=== PATIENT | female | born 1990 | race Caucasian/White ===

== ENCOUNTER 2017-08-20 09:50 | Emergency (ER) | payer SELFPAY, OTHER ==
[2017-08-20] MEDS: KETOROLAC 60 MG/2 ML VIAL (J1885) IM (10:17)
[2017-08-20 10:37] LABS: KETONE, URINE AUTO RFX NEGATIVE (NEGATIVE); LEUKOCYTE ESTERASE UR AUTO RFX NEGATIVE (NEGATIVE); MUCUS, URINE RFX SMALL (NEGATIVE); NITRITE, URINE AUTO RFX NEGATIVE (NEGATIVE); RBC, URINE AUTO RFX 26 /HPF (0-3); SPECIFIC GRAVITY UR AUTO RFX 1.008 (1.002-1.035); SQUAM EPITHELIAL CELL UR AURFX 0 /HPF (0-6); WBC, URINE AUTO RFX 2 /HPF (0-3)
== END 2017-08-20 12:16 | disposition home or self-care (01) ==
LOC: M ED 09:50
DX: R10.2 Pelvic and perineal pain (principal); R11.0 Nausea; Z87.442 Personal history of urinary calculi; Z88.1 Allergy status to other antibiotic agents; Z91.018 Allergy to other foods
CPT/HCPCS: J1885

== ENCOUNTER 2018-08-22 09:59 | Emergency (ER) | payer BC, SELFPAY ==
[~2018-08-22] VITALS: Ht 167.6 cm; Wt 63.5 kg
[~2018-08-22 09:59] MED LIST: IBUP80TA PO
[2018-08-22 10:41] LABS: BASO # 0.1 10^3/uL (0.0-0.2); BASO % 1.2 % (0.0-1.0); EOS # 0.2 10^3/uL (0.0-0.50); EOS % 3.5 % (0.0-3.0); HEMATOCRIT 36.1 % (36.0-47.0); LYMPH % 22.7 % (24.0-44.0); MEAN CORPUSCULAR HEMOGLOBIN 30.6 pg (27.0-33.0); MEAN CORPUSCULAR HGB CONC 33.2 g/dl (32.0-36.5); MEAN CORPUSCULAR VOLUME 92.1 fl (80.0-96.0); MONO # 0.2 10^3/uL (0.0-0.8); MONO % 4.4 % (0.0-5.0); NEUTROPHILS # 2.9 10^3/uL (1.8-7.7); NEUTROPHILS % 67.5 % (36.0-66.0); PLATELET COUNT, AUTOMATED 216 10^3/uL (150-450); RED BLOOD COUNT 3.92 10^6/uL (4.00-5.40); WHITE BLOOD COUNT 4.3 10^3/uL (4.0-10.0)
[2018-08-22 11:11] LABS: ALBUMIN 3.9 GM/DL (3.2-5.2); ALT/SGPT 24 U/L (12-78); BILIRUBIN,DIRECT 0.1 MG/DL (0.0-0.2); BILIRUBIN,TOTAL 0.4 MG/DL (0.2-1.0); BLOOD UREA NITROGEN 16 MG/DL (7-18); C REACTIVE PROTEIN QUANTITATIV 0.85 MG/DL (0.00-0.30); CALCIUM LEVEL 8.8 MG/DL (8.5-10.1); CARBON DIOXIDE LEVEL 24 MEQ/L (21-32); CHLORIDE LEVEL 110 MEQ/L (98-107); GLOMERULAR FILTRATION RATE > 60.0 (>60); GLUCOSE, FASTING 94 MG/DL (70-100); POTASSIUM SERUM 4.2 MEQ/L (3.5-5.1); RHEUMATOID FACTOR QUANT < 10.0 IU/ML (<15.0); SODIUM LEVEL 141 MEQ/L (136-145); TOTAL PROTEIN 7.1 GM/DL (6.4-8.2)
[2018-08-22 11:14] LABS: ERYTHROCYTE SEDIMENTATION RATE 14 mm/hr (0-20)
[2018-08-22 11:21] LABS: HCG, SERUM QUALITATIVE POSITIVE (NEGATIVE)
--- NOTE | 2018-08-22 12:39 | REP ---
Clinical: Previous medical with vaginal bleeding and positive test. Technique: Transabdominal pelvic ultrasound with color Doppler evaluation. Findings: Heterogeneous anteverted uterus measures 8.8 x 4.8 x 6.8 cm. Endometrial complex is heterogeneous, thickened and hypervascular measuring 19.8 mm thickness suggesting retained products of conception. No intrauterine identified. Bilateral ovaries are normal in appearance. Right ovary measures 3.7 x 2.0 x 2.2 cm; Left ovary measures 3.3 x 2.2 x 2.5 cm. No pelvic fluid or adnexal mass lesion. Impression: Heterogeneous thickened hypervascular endometrium consistent with retained products of conception. Electronically Signed by Kervin Kenyon MD 08/22/2018 12:30 P
[2018-08-22] MEDS ORDERED: PRED20TA PO (12:55)
[2018-08-22 13:04] VITALS: BP 107/58
[2018-08-23 17:14] LABS: ANTINUCLEAR ANTIBODIES DIRECT Negative (Negative); Lyme Disease IgG/IgM Antibodie <0.91 ISR (0.00-0.90); Lyme Disease IgM Ab Quantitati <0.80 index (0.00-0.79)
== END 2018-08-22 13:06 | disposition home or self-care (01) ==
LOC: M ED 09:59
DX: M25.50 Pain in unspecified joint (principal); M79.89 Other specified soft tissue disorders; M19.90 Unspecified osteoarthritis, unspecified site; O04.89 (Induced) termination of pregnancy with other complications; O73.1 Retained portions of placenta and membranes, without hemorrhage

== ENCOUNTER → 2018-09-16 | Outpatient (REF) | payer BC ==
[~2018-09-16] MED LIST changes: +PRED20TA PO
[2018-09-16 13:52] LABS: RHEUMATOID FACTOR QUANT < 10.0 IU/ML (<15.0)
[2018-09-16 13:54] LABS: TOTAL 25(OH) VITAMIN D 20.3 NG/ML (30.0-100.0)
[2018-09-17 14:11] LABS: ANTINUCLEAR ANTIBODIES DIRECT Negative (Negative)
== END ==
LOC: M LABNEURO 08:37
PROVIDERS: ATTEND Psychiatry & Neurology Neurology
DX: R51 Headache (principal)

== ENCOUNTER 2019-02-18 13:48 | Day surgery (SDC) | payer BC, SELFPAY ==
[~2019-02-18] VITALS: Ht 167.6 cm; Wt 65.7 kg
[2019-02-18] MEDS ORDERED: SERT25TA21 PO (14:07)
[2019-02-18] MEDS ORDERED: NS 1,000 ML IV ONE (14:15)
[2019-02-18] MEDS ORDERED: ONDANSETRON 4MG/2ML VIAL (J2405) IV ONE (14:15)
[2019-02-18 14:28] LABS: BASO # 0.1 10^3/uL (0.0-0.2); BASO % 0.6 % (0.0-1.0); EOS % 0.4 % (0.0-3.0); HEMATOCRIT 30.9 % (36.0-47.0); HEMOGLOBIN 10.2 g/dl (12.0-15.5); LYMPH # 2.1 10^3/uL (1.5-5.0); LYMPH % 20.9 % (24.0-44.0); MEAN CORPUSCULAR HEMOGLOBIN 30.4 pg (27.0-33.0); MONO # 0.5 10^3/uL (0.0-0.8); MONO % 4.5 % (0.0-5.0); NEUTROPHILS # 7.3 10^3/uL (1.5-8.5); NEUTROPHILS % 73.2 % (36.0-66.0); PLATELET COUNT, AUTOMATED 284 10^3/uL (150-450); RED BLOOD COUNT 3.36 10^6/uL (4.00-5.40)
[2019-02-18 15:17] LABS: BLOOD UREA NITROGEN 16 MG/DL (7-18); CALCIUM LEVEL 8.7 MG/DL (8.5-10.1); CARBON DIOXIDE LEVEL 24 MEQ/L (21-32); CHLORIDE LEVEL 109 MEQ/L (98-107); CREATININE FOR GFR 0.69 MG/DL (0.55-1.30); GLOMERULAR FILTRATION RATE > 60.0 (>60); GLUCOSE, FASTING 114 MG/DL (70-100); HCG, SERUM QUANTITATIVE 7909 MIU/ML; POTASSIUM SERUM 4.3 MEQ/L (3.5-5.1); SODIUM LEVEL 140 MEQ/L (136-145)
[2019-02-18] MEDS ORDERED: ACETAMINOPHEN 325 MG TAB PO ONE (16:30)
--- NOTE | 2019-02-18 16:49 | REP ---
Clinical: Vaginal bleeding. Recent . Technique: Transabdominal pelvic ultrasound with color Doppler evaluation of the ovaries. Findings: Bladder appears normal and measures approximately 10.4 x 4.5 x 5.7 cm. Heterogeneous anteverted uterus measures 7.9 x 4.9 x 6.0 cm. Endometrial complex measures 12 mm thickness and complex hemorrhagic debris noted distending the vaginal canal. Bilateral ovaries are normal in appearance and vascularity without evidence for torsion. Right ovary measures 2.9 x 1.8 x 1.5 cm (RI of 0.66). Left ovary measures 2.0 x 1.4 x 1.7 cm (RI 0.50). No pelvic fluid or adnexal mass lesion. Impression: Complex presumed hemorrhagic material distending the endovaginal canal. Electronically Signed by Kervin Kenyon MD 02/18/2019 04:39 P
[2019-02-18 18:07] LABS: INR 1.18; PROTHROMBIN TIME 14.7 SECONDS (11.8-14.0)
[2019-02-18] MEDS ORDERED: LIDOCAINE 2% INJ 100 MG/5 ML SDV (FOR ANES.) As Ordered ONE (18:32)
[2019-02-18] MEDS ORDERED: propofoL 200 MG/20 ML VIAL As Ordered ONE (18:32)
[2019-02-18] MEDS ORDERED: MIDAZOLAM INJ 2 MG/2 ML VIAL (J2250) As Ordered ONE (18:33)
[2019-02-18] MEDS ORDERED: ONDANSETRON 4MG/2ML VIAL (J2405) As Ordered ONE (18:33)
[2019-02-18] MEDS ORDERED: KETOROLAC 60 MG/2 ML VIAL (J1885) As Ordered ONE (18:33)
[2019-02-18] MEDS ORDERED: dexameTHASONE 4 MG/ML 1ML VIAL (J1100) As Ordered ONE (18:33)
[2019-02-18] MEDS ORDERED: fentaNYL 100 MCG/2 ML INJECTION (J3010) As Ordered ONE (18:33)
[2019-02-18] MEDS ORDERED: METHYLERGONOVINE MALEATE 0.2 MG/ML VIAL (J2210) As Ordered ONE (19:25)
[2019-02-18] MEDS: PERCOCET 5MG/325MG TAB PO PRN ×2 (19:55→20:44)
[2019-02-18] MEDS ORDERED: fentaNYL 100 MCG/2 ML INJECTION (J3010) IV PRN (20:00)
[2019-02-18] MEDS ORDERED: ACETAMINOPHEN 500 MG TAB PO PRN (20:00)
[2019-02-18] MEDS ORDERED: LR 1,000 ML IV SCH ×2 (20:00)
[2019-02-18] MEDS ORDERED: ONDANSETRON 4MG/2ML VIAL (J2405) IV PRN (20:00)
[2019-02-18] MEDS ORDERED: METOCLOPRAMIDE INJ 10MG/2ML VIAL (J2765) IV PRN (20:00)
[2019-02-18] MEDS ORDERED: DOXYCYCLINE HYCLATE 100 MG TAB PO ONE (20:00)
[2019-02-18 21:10] VITALS: BP 117/57
[2019-02-18 21:30] VITALS: BP 104/51
--- NOTE | 2019-02-19 08:58 | RO ---
DATE OF PROCEDURE: 02/18/2019 PREOPERATIVE DIAGNOSIS: Incomplete . POSTOPERATIVE DIAGNOSIS: Incomplete . PROCEDURE: Dilation, evacuation and curettage (D, E and C). SURGEON: Bertram Huang MD COPPER PLATER: ANESTHESIA: General endotracheal. ESTIMATED BLOOD LOSS: 100 mL. URINE OUTPUT: 30 mL. FINDINGS: Mildly enlarged uterus with moderate amount of products of conception. OPERATIVE SUMMARY: Patient taken to the operating room where general endotracheal anesthesia was induced. She was prepped and draped in sterile fashion in the dorsal lithotomy position. The bladder was emptied with a catheter. A speculum was placed in the vagina. The anterior lip of the cervix was grasped with a tenaculum. The cervix was dilated with tapered dilators. The cervix was also noted to be mildly dilated. A #9 mm suction curette was placed to the internal os. A suction device was activated and the curette was gently rotated until products of conception were noted coming through the suction tube. A sharp curettage was performed. The uterine cavity was deemed to be empty. Patient noted to have moderate uterine atony after the procedure. She received 0.2 mg of Methergine intramuscular (IM). Her uterine tone improved. Hemostasis was good. All instruments were removed. Sponge and instrument counts were correct. The patient was extubated and went to recovery room in stable condition.
== END 2019-02-18 22:15 | disposition home or self-care (01) ==
LOC: M ED 13:48 → M SDC 13:49 → ENRESERV 20:17 → M PED 21:10 → M SDC 22:15
PROVIDERS: ATTEND Specialist
DX: O03.4 Incomplete spontaneous abortion without complication (principal); Z87.442 Personal history of urinary calculi; Z88.1 Allergy status to other antibiotic agents; Z79.899 Other long term (current) drug therapy
CPT/HCPCS: 36415; 59812; 76856; 80048; 81001; 84702; 85025; 85610; 86850; 86870; 86900; 86901; 87088; 87186; 88305; 93976; 96374; 99284; J1100; J1885; J2210; J2250; J2405; J3010

== ENCOUNTER → 2019-12-28 | Outpatient (CLI) | payer BC ==
[~2019-12-28] MED LIST changes: +SERT25TA21 PO
[2019-12-28 14:50] LABS: FREE T4 0.8 NG/DL (0.76-1.46); THYROID STIMULATING HORMONE 3.7 uIU/ML (0.358-3.740)
== END ==
LOC: M LAB 10:44
PROVIDERS: ATTEND Internal Medicine Gastroenterology
DX: K21.9 Gastro-esophageal reflux disease without esophagitis (principal)

== ENCOUNTER → 2020-01-11 | Outpatient (CLI) | payer BC ==
[2020-01-13 18:25] LABS: F013-IGE PEANUT 0.41 kU/L (Class I); F017-IGE FILBERT 0.86 kU/L (Class II); F018-IGE BRAZIL NUT <0.10 kU/L (Class 0); F020-IGE ALMOND 0.18 kU/L (Class 0/I); F201-IGE PECAN NUT 0.11 kU/L (Class 0/I); F202-IGE CASHEW NUT <0.10 kU/L (Class 0); F256-IGE WALNUT 0.48 kU/L (Class I); F345-IGE MACADAMIA NUT 0.15 kU/L (Class 0/I)
== END ==
LOC: M PLALAB 10:03
PROVIDERS: ATTEND Allergy & Immunology Allergy
DX: T78.01XD Anaphylactic reaction due to peanuts, subsequent encounter (principal); T78.05XD Anaphylactic reaction due to tree nuts and seeds, subsequent encounter

== ENCOUNTER → 2020-01-29 | Outpatient (REF) | payer BC ==
[~2020-01-29] MED LIST changes: +CLAR1TAB13 PO; +OMEP-221 PO
== END ==
LOC: M LAB REF 14:39
PROVIDERS: ATTEND Internal Medicine Gastroenterology
DX: K21.9 Gastro-esophageal reflux disease without esophagitis (principal)

== ENCOUNTER → 2020-01-30 | Outpatient (CLI) | payer BC | LOC: M LABSMTC 10:47 | PROVIDERS: ATTEND Anesthesiology | DX: Z01.818 Encounter for other preprocedural examination (principal); Z20.828 Contact with and (suspected) exposure to other viral communicable diseases ==

== ENCOUNTER 2020-02-04 11:41 | Day surgery (SDC) | payer BC ==
[~2020-02-04] VITALS: Ht 167.6 cm; Wt 71.2 kg
[~2020-02-04 11:41] MED LIST changes: +NS 1,000 ML IV ONE
[2020-02-04] MEDS ORDERED: LIDOCAINE 2% 100MG/5ML SDV (FOR ANES.) As Ordered ONE (12:27)
[2020-02-04] MEDS ORDERED: propofoL 200 MG/20 ML VIAL As Ordered ONE (12:27)
[2020-02-04] MEDS ORDERED: fentaNYL 100 MCG/2 ML INJECTION (J3010) As Ordered ONE (12:27)
--- NOTE | 2020-02-04 12:45 | ROOR ---
Patient Name: Vivi Rod Procedure Date: 02/04/2020 12:30 PM Date of : 1990 Age: 29 Room: [facility] Gender: Female Note Status: Finalized Procedure: Upper GI endoscopy Indications: Functional Dyspepsia, Heartburn Providers: Scotty REYES MD Referring MD: Adrienne Sanchez NP Requesting Provider: Medicines: Monitored Anesthesia Care Complications: No immediate complications. Procedure: Pre-Anesthesia Assessment: - The heart rate, respiratory rate, oxygen saturations, blood pressure, adequacy of pulmonary ventilation, and response to care were monitored throughout the procedure. The Endoscope was introduced through the mouth, and advanced to the second part of duodenum. The upper GI endoscopy was accomplished without difficulty. The patient tolerated the procedure well. Findings: The esophagus was normal. The stomach was normal. The examined duodenum was normal. Impression: - Normal esophagus. - Normal stomach. - Normal examined duodenum. - No specimens collected. Recommendation: - Follow an antireflux regimen. - Continue present medications. Procedure Code(s): --- Professional --- 80302, Esophagogastroduodenoscopy, flexible, transoral; diagnostic, including collection of specimen(s) by brushing or washing, when performed (separate procedure) Diagnosis Code(s): --- Professional --- R12, Heartburn K30, Functional dyspepsia CPT copyright 2019 [employer]. All rights reserved. The codes documented in this report are preliminary and upon hcc coders review may be revised to meet current compliance requirements. Scotty Reyes MD Scotty REYES MD 02/04/2020 12:44:36 PM Electronically signed by Scotty REYES MD Number of Addenda: 0 Note Initiated On: 02/04/2020 12:30 PM Estimated Blood Loss: Estimated blood loss: none.
[2020-02-04] MEDS ORDERED: ePHEDrine SULFATE 25 MG/5 ML(5MG/ML) SYRINGE As Ordered ONE (12:48)
--- NOTE | 2020-02-04 13:07 | ROOR ---
Patient Name: Vivi Rod Procedure Date: 02/04/2020 12:30 PM Date of : 1990 Age: 29 Room: [facility] Gender: Female Note Status: Finalized Procedure: Colonoscopy Indications: Generalized abdominal pain, Clinically significant diarrhea of unexplained origin, Suspected irritable bowel syndrome Providers: Scotty REYES MD Referring MD: Adrienne Sanchez NP Requesting Provider: Medicines: Monitored Anesthesia Care Complications: No immediate complications. Procedure: Pre-Anesthesia Assessment: - The heart rate, respiratory rate, oxygen saturations, blood pressure, adequacy of pulmonary ventilation, and response to care were monitored throughout the procedure. The Colonoscope was introduced through the anus and advanced to 10 cm into the ileum. The colonoscopy was performed without difficulty. The patient tolerated the procedure well. The quality of the bowel preparation was good. Findings: The perianal and digital rectal examinations were normal. A diminutive polyp was found in the hepatic flexure. The polyp was sessile. The polyp was removed with a cold snare. Resection and retrieval were complete. Small Internal Hemorrhoids. The exam was otherwise normal throughout the examined colon. The terminal ileum appeared normal. Impression: - One diminutive polyp at the hepatic flexure, removed with a cold snare. Resected and retrieved. - Small Internal Hemorrhoids. - The colon is otherwise normal. - The terminal ileum ileum was normal. - (Irritable Bowel Syndrome/IBS suspected.) Recommendation: - Discontinue Bentyl (dicyclomine). - Use Levbid 0.375 mg Extended Tabs 1 tab PO every 8-12 hours PRN. - (the script was sent to your pharmacy on file) - Telephone endoscopist for pathology results in 2 weeks. - If the pathology report reveals adenomatous tissue, then repeat the colonoscopy for surveillance in 5 years. - If the pathology report reveals no adenomatous tissue, then repeat the colonoscopy at age [age] years old. Procedure Code(s): --- Professional --- 19812, Colonoscopy, flexible; with removal of tumor(s), polyp(s), or other lesion(s) by snare technique Diagnosis Code(s): --- Professional --- R19.7, Diarrhea, unspecified R10.84, Generalized abdominal pain K63.5, Polyp of colon CPT copyright 2019 [employer]. All rights reserved. The codes documented in this report are preliminary and upon concrete crusher loader operator review may be revised to meet current compliance requirements. Scotty Reyes MD Scotty REYES MD 02/04/2020 1:07:20 PM Electronically signed by Scotty REEYS MD Number of Addenda: 0 Note Initiated On: 02/04/2020 12:30 PM Estimated Blood Loss: Estimated blood loss: none.
[2020-02-04 13:30] VITALS: BP 110/70
== END 2020-02-04 13:42 | disposition home or self-care (01) ==
LOC: M OPP 11:41
PROVIDERS: ATTEND Internal Medicine Gastroenterology
DX: R10.84 Generalized abdominal pain (principal); R19.7 Diarrhea, unspecified; K63.5 Polyp of colon; K64.8 Other hemorrhoids; K30 Functional dyspepsia; R12 Heartburn
CPT/HCPCS: 43235; 45385; 88305; J3010

== ENCOUNTER → 2020-04-26 | Outpatient (CLI) | payer BC ==
[~2020-04-26] MED LIST changes: -NS 1,000 ML IV ONE
--- NOTE | 2020-04-26 16:13 | REP ---
INDICATION: R10L2 PELVIC AND PERINEAL PAIN COMPARISON: 02/18/2019 TECHNIQUE: Transabdominal pelvic ultrasound followed by transvaginal examination for better evaluation of the endometrium and adnexa. FINDINGS: Bladder is partially collapsed. Normal anteverted uterus measures 9.4 x 4.2 x 4.7 cm. The endometrial complex measures 7.1 mm thickness and includes small incidental 3 mm endometrial cyst. Nabothian cysts in the lower uterine segment and cervix are identified measuring up to approximately 7 mm. Bilateral ovaries are normal in appearance and vascularity without evidence for torsion. Right ovary measures 3.1 x 1.3 x 3.3 cm; left ovary measures 2.6 x 2.0 x 1.7 cm. No pelvic fluid or adnexal mass lesion. IMPRESSION: Essentially normal pelvic ultrasound. Incidental findings as noted above. <Electronically signed by Kervin Kenyon > 04/26/20 [id number]
== END ==
LOC: M WHC 15:09
PROVIDERS: ATTEND Advanced Practice Midwife
DX: R10.2 Pelvic and perineal pain (principal)

== ENCOUNTER → 2021-06-27 | Outpatient (CLI) | payer BC, OTHER ==
[~2021-06-27] MED LIST changes: -OMEP-221 PO; +OMEP40CA5 PO
== END ==
LOC: M PLALAB 12:31
PROVIDERS: ATTEND Specialist
DX: Z53.9 Procedure and treatment not carried out, unspecified reason (principal)

== ENCOUNTER → 2021-08-07 | Outpatient (CLI) | payer BC, OTHER | LOC: M WHC 09:14 | PROVIDERS: ATTEND Specialist | DX: Z34.82 Encounter for supervision of other normal pregnancy, second trimester (principal); Z3A.19 19 weeks gestation of pregnancy ==

== ENCOUNTER → 2021-08-28 | Outpatient (REF) | payer OTHER | LOC: M PLALAB 08:01 | PROVIDERS: ATTEND Advanced Practice Midwife | DX: Z34.92 Encounter for supervision of normal pregnancy, unspecified, second trimester (principal) ==

== ENCOUNTER → 2021-09-12 | Outpatient (CLI) | payer OTHER | LOC: M WHC 12:33 | PROVIDERS: ATTEND Advanced Practice Midwife | DX: O44.02 Complete placenta previa NOS or without hemorrhage, second trimester (principal); Z3A.24 24 weeks gestation of pregnancy ==

== ENCOUNTER → 2021-09-25 | Outpatient (CLI) | payer OTHER ==
[2021-09-25 15:41] LABS: HEMATOCRIT 40.5 % (36.0-47.0); HEMOGLOBIN 13.3 g/dl (12.0-15.5); MEAN CORPUSCULAR HEMOGLOBIN 32.3 pg (27.0-33.0); MEAN CORPUSCULAR HGB CONC 32.8 g/dl (32.0-36.5); MEAN CORPUSCULAR VOLUME 98.3 fl (80.0-96.0); PLATELET COUNT, AUTOMATED 180 10^3/uL (150-450); RED BLOOD COUNT 4.12 10^6/uL (4.00-5.40)
== END ==
LOC: M PLALAB 12:48
PROVIDERS: ATTEND Advanced Practice Midwife
DX: Z34.92 Encounter for supervision of normal pregnancy, unspecified, second trimester (principal)
CPT/HCPCS: 36415; 82950; J2790

== ENCOUNTER → 2021-09-25 | Outpatient (CLI) | payer OTHER ==
[2021-09-25 15:41] LABS: BASO % 0.3 % (0.0-1.0); EOS # 0.1 10^3/uL (0.0-0.5); EOS % 0.7 % (0.0-3.0); HEMATOCRIT 41.8 % (36.0-47.0); HEMOGLOBIN 13.4 g/dl (12.0-15.5); LYMPH # 1.6 10^3/uL (1.5-5.0); LYMPH % 18.7 % (24.0-44.0); MEAN CORPUSCULAR HEMOGLOBIN 31.2 pg (27.0-33.0); MEAN CORPUSCULAR HGB CONC 32.1 g/dl (32.0-36.5); MEAN CORPUSCULAR VOLUME 97.2 fl (80.0-96.0); MONO # 0.5 10^3/uL (0.0-0.8); MONO % 5.6 % (2.0-8.0); NEUTROPHILS # 6.5 10^3/uL (1.5-8.5); NEUTROPHILS % 74.2 % (36.0-66.0); PLATELET COUNT, AUTOMATED 183 10^3/uL (150-450); WHITE BLOOD COUNT 8.8 10^3/uL (4.0-10.0)
[2021-09-25 17:20] LABS: GC DNA AMPLIFICATION NEGATIVE (NEGATIVE)
[2021-09-25 20:10] LABS: HEPATITIS C VIRUS ABY INDEX < 0.0 INDEX (<0.8); HIV 1&2 SCREEN CENTAUR NEGATIVE (NEGATIVE)
== END ==
LOC: M PLALAB 12:43
PROVIDERS: ATTEND Specialist
DX: Z34.81 Encounter for supervision of other normal pregnancy, first trimester (principal)

== ENCOUNTER → 2021-12-05 | Outpatient (REF) | payer OTHER | LOC: M SFHCWAGY 16:56 | PROVIDERS: ATTEND Advanced Practice Midwife | DX: Z36.85 Encounter for antenatal screening for Streptococcus B (principal) ==

== ENCOUNTER 2021-12-24 16:59 | Outpatient (CLI) | payer OTHER ==
[~2021-12-24] VITALS: Ht 167.6 cm; Wt 86.1 kg
[2021-12-24] MEDS ORDERED: PSEU30TA86 PO (17:35)
[2021-12-24] MEDS ORDERED: HOME MED LIST COMPLETE! XX SCH (17:35)
[2021-12-24] MEDS ORDERED: PRENTAB9 PO (17:35)
[2021-12-24 17:57] VITALS: BP 130/68
[2021-12-24 21:19] VITALS: BP 143/85
[2021-12-24 21:42] VITALS: BP 127/72
== END 2021-12-24 21:50 | disposition home or self-care (01) ==
LOC: M LDO 16:59
PROVIDERS: ATTEND Obstetrics & Gynecology
DX: O60.03 Preterm labor without delivery, third trimester (principal); Z3A.38 38 weeks gestation of pregnancy
CPT/HCPCS: 59025; G0463

== ENCOUNTER 2021-12-30 08:12 | Emergency (ER) | payer OTHER, SELFPAY ==
[~2021-12-30] VITALS: Ht 167.6 cm; Wt 87.6 kg
[~2021-12-30 08:12] MED LIST changes: +PRENTAB9 PO; +PSEU30TA86 PO
[2021-12-30] MEDS ORDERED: AUGMENTIN 875 MG TAB PO ONE (10:45)
[2021-12-30] MEDS ORDERED: AMOX875T2 PO (10:58)
[2021-12-30 11:13] VITALS: BP 141/77
== END 2021-12-30 11:14 | disposition home or self-care (01) ==
LOC: M ED 08:12
DX: J01.10 Acute frontal sinusitis, unspecified (principal); Z91.018 Allergy to other foods; Z91.010 Allergy to peanuts; Z88.1 Allergy status to other antibiotic agents; Z79.810 Long term (current) use of selective estrogen receptor modulators (SERMs); Z79.899 Other long term (current) drug therapy

== ENCOUNTER 2022-01-01 21:01 | Inpatient (IN) | payer OTHER ==
[~2022-01-01] VITALS: Ht 167.6 cm; Wt 87.1 kg
[~2022-01-01 21:01] MED LIST changes: +AMOX875T2 PO
[2022-01-01] MEDS ORDERED: LACTATED RINGER'S 1000 ML IV STA (21:06)
[2022-01-01] MEDS ORDERED: PENICILLIN G POTASSIUM 5 MU IV 5 MU in D5W MINI-BAG PLUS 100 ML IV STA (21:06)
[2022-01-01] MEDS ORDERED: CARBOPROST TROMETHAMINE 250 MCG/ML AMP IM PRN (21:10)
[2022-01-01] MEDS ORDERED: METHYLERGONOVINE MALEATE 0.2 MG/ML VIAL (J2210) IM PRN (21:10)
[2022-01-01] MEDS ORDERED: OXYTOCIN INJ 10 UNITS/ML VIAL (J2590) IM PRN (21:10)
[2022-01-01] MEDS ORDERED: OXYTOCIN DRIP 30 UNITS in IV 1 EA IV PRN (21:10)
[2022-01-01] MEDS ORDERED: TRANEXAMIC ACID INJection 1,000 MG in NS 100 ML IV PRN (21:10)
[2022-01-01] MEDS ORDERED: LIDOCAINE 1% MDV 20ML VIAL INFIL PRN (21:10)
[2022-01-01 21:27] VITALS: BP 135/89
[2022-01-01] MEDS ORDERED: HOME MED LIST COMPLETE! XX SCH (21:45)
[2022-01-01 21:48] VITALS: BP 127/76
[2022-01-01 22:09] LABS: HEMATOCRIT 35.6 % (36.0-47.0); MEAN CORPUSCULAR HEMOGLOBIN 30.9 pg (27.0-33.0); MEAN CORPUSCULAR HGB CONC 33.7 g/dl (32.0-36.5); MEAN CORPUSCULAR VOLUME 91.8 fl (80.0-96.0); PLATELET COUNT, AUTOMATED 245 10^3/uL (150-450); RED BLOOD COUNT 3.88 10^6/uL (4.00-5.40)
[2022-01-01] MEDS: miSOPROStol 50MCG 1/2 TABLET PO SCH (22:26)
[2022-01-01 22:27] VITALS: BP 137/77
[2022-01-01 23:41] VITALS: BP 166/88
[2022-01-01 23:42] VITALS: BP 171/92
[2022-01-02] VITALS (48 sets, daily range): BP systolic 116–203; BP diastolic 64–106
[2022-01-02] MEDS ORDERED: PEN G POT 3,000,000 UNIT/50 ML 3,000,000 UNIT in IV 1 EA IV SCH ×2 (01:10→11:30)
[2022-01-02 01:14] LABS: ALT/SGPT 23 U/L (12-78); BILIRUBIN,TOTAL 0.3 MG/DL (0.2-1.0); CREATININE FOR GFR 0.52 MG/DL (0.55-1.30); GLOMERULAR FILTRATION RATE > 60.0 (>60); LDH LACTATE DEHYDROGENASE 185 U/L (84-246); URIC ACID 2.9 MG/DL (2.6-6.0)
[2022-01-02 01:53] LABS: CREATININE,RANDOM URINE 71.9 MG/DL
[2022-01-02] MEDS: miSOPROStol 50MCG 1/2 TABLET PO SCH ×2 (05:19→10:02)
[2022-01-02] MEDS ORDERED: PENICILLIN G POTASSIUM 5 MU IV 5 MU in D5W MINI-BAG PLUS 100 ML IV STA (07:27)
[2022-01-02] MEDS ORDERED: AUGMENTIN 875 MG TAB PO SCH (09:00)
[2022-01-02] MEDS ORDERED: LR 500 ML IV PRN (11:45)
[2022-01-02] MEDS ORDERED: EPIDURAL/PCA KEYS XX PRN (11:45)
[2022-01-02] MEDS ORDERED: NALOXONE INJ 0.4MG/1ML VIAL (J2310 PER 1MG) IV PRN (11:45)
[2022-01-02] MEDS ORDERED: ONDANSETRON 4MG 2ML VIAL IV PRN (11:45)
[2022-01-02] MEDS ORDERED: ePHEDrine SULFATE 25 MG/5 ML(5MG/ML) SYRINGE IVP PRN (11:45)
[2022-01-02] MEDS ORDERED: diphenhydrAMINE 50MG/ML VIAL IV PRN (11:45)
[2022-01-02] MEDS ORDERED: FENTANYL/ROPIVACAINE/NACL BAG 100 ML EPIDURAL SCH (11:45)
[2022-01-02] MEDS: LR 1,000 ML IV SCH ×2 (12:32→14:52)
[2022-01-02] MEDS ORDERED: METHYLERGONOVINE MALEATE 0.2 MG TAB PO PRN (15:40)
[2022-01-02] MEDS ORDERED: IBUPROFEN 600MG TAB PO PRN (15:40)
[2022-01-02] MEDS ORDERED: ACETAMINOPHEN TAB 650MG DOSE (2X325MG) PO PRN (15:40)
[2022-01-02] MEDS ORDERED: DIBUCAINE 1% OINTMENT 30GM TOP PRN (15:40)
[2022-01-02] MEDS ORDERED: OXYTOCIN DRIP 30 UNITS in IV 1 EA IV ONE (15:40)
[2022-01-02] MEDS ORDERED: RHOGAM 300 MCG (1500 IU) INJ (J2790) IM SCH (15:40)
[2022-01-02] MEDS: IBUPROFEN 800 MG TAB PO PRN (20:37)
[2022-01-02] MEDS: AUGMENTIN 875 MG TAB PO SCH (20:42)
[2022-01-03 06:00] VITALS: BP 123/77
[2022-01-03 10:00] VITALS: BP 120/72
[2022-01-03] MEDS ORDERED: OXYTOCIN INJ 10 UNITS/ML VIAL (J2590) IV STA (10:03)
[2022-01-03] MEDS ORDERED: METHYLERGONOVINE MALEATE 0.2 MG/ML VIAL (J2210) IM STA (10:03)
[2022-01-03] MEDS ORDERED: OXYTOCIN 30 UNITS IN 0.9% NaCl 500ML IV BAG (J2590) As Ordered ONE (10:11)
[2022-01-03] MEDS ORDERED: MORPHINE 4 MG/ML 1ML VIAL/SYRINGE IV STA (10:24)
[2022-01-03] MEDS ORDERED: KETOROLAC 30 MG/ML 1ML VIAL IV ONE (10:30)
[2022-01-03] MEDS ORDERED: OXYTOCIN DRIP 30 UNITS in IV 1 EA IV STA (10:48)
[2022-01-03] MEDS: PRENATAL VITAMINS CHEWABLE TABLET PO SCH (10:52)
[2022-01-03] MEDS: AUGMENTIN 875 MG TAB PO SCH ×2 (10:52→20:28)
[2022-01-03] MEDS: ACETAMINOPHEN 500 MG TAB PO PRN ×3 (10:53→22:08)
[2022-01-03] MEDS ORDERED: AMPICILLIN SOD/SULBACTAM SOD 3 GM in D5W MINI-BAG PLUS 100 ML IV ONE (13:00)
[2022-01-03 16:14] LABS: BASO % 0.1 % (0.0-1.0); EOS % 0.2 % (0.0-3.0); HEMATOCRIT 25.5 % (36.0-47.0); LYMPH # 2.3 10^3/uL (1.5-5.0); LYMPH % 14.1 % (24.0-44.0); MEAN CORPUSCULAR HEMOGLOBIN 31.2 pg (27.0-33.0); MEAN CORPUSCULAR HGB CONC 32.9 g/dl (32.0-36.5); MEAN CORPUSCULAR VOLUME 94.8 fl (80.0-96.0); MONO # 0.5 10^3/uL (0.0-0.8); MONO % 3.1 % (2.0-8.0); NEUTROPHILS # 13.3 10^3/uL (1.5-8.5); NEUTROPHILS % 81.4 % (36.0-66.0); PLATELET COUNT, AUTOMATED 256 10^3/uL (150-450); RED BLOOD COUNT 2.69 10^6/uL (4.00-5.40); WHITE BLOOD COUNT 16.4 10^3/uL (4.0-10.0)
[2022-01-03 16:21] LABS: HEMOGLOBIN 8.4 g/dl (12.0-15.5)
[2022-01-03] MEDS: METHYLERGONOVINE MALEATE 0.2 MG TAB PO SCH ×2 (16:24→22:07)
[2022-01-03 18:00] VITALS: BP 125/68
[2022-01-03] MEDS: IBUPROFEN 800 MG TAB PO PRN (18:21)
[2022-01-03] MEDS: DOCUSATE SODIUM 100MG CAPSULE PO PRN (20:28)
[2022-01-04] MEDS: IBUPROFEN 800 MG TAB PO PRN (03:45)
[2022-01-04] MEDS: METHYLERGONOVINE MALEATE 0.2 MG TAB PO SCH ×2 (03:45→09:58)
[2022-01-04 06:00] VITALS: BP 138/86
[2022-01-04 06:50] LABS: BASO % 0.3 % (0.0-1.0); EOS # 0.2 10^3/uL (0.0-0.5); EOS % 1.3 % (0.0-3.0); HEMATOCRIT 22.1 % (36.0-47.0); HEMOGLOBIN 7.2 g/dl (12.0-15.5); LYMPH # 2.7 10^3/uL (1.5-5.0); LYMPH % 21.5 % (24.0-44.0); MEAN CORPUSCULAR HEMOGLOBIN 30.4 pg (27.0-33.0); MEAN CORPUSCULAR HGB CONC 32.6 g/dl (32.0-36.5); MEAN CORPUSCULAR VOLUME 93.2 fl (80.0-96.0); MONO # 0.8 10^3/uL (0.0-0.8); NEUTROPHILS # 8.8 10^3/uL (1.5-8.5); NEUTROPHILS % 69.4 % (36.0-66.0); PLATELET COUNT, AUTOMATED 217 10^3/uL (150-450); RED BLOOD COUNT 2.37 10^6/uL (4.00-5.40); WHITE BLOOD COUNT 12.6 10^3/uL (4.0-10.0)
[2022-01-04] MEDS: DOCUSATE SODIUM 100MG CAPSULE PO PRN (08:22)
[2022-01-04] MEDS: PRENATAL VITAMINS CHEWABLE TABLET PO SCH (08:22)
[2022-01-04] MEDS: ACETAMINOPHEN 500 MG TAB PO PRN (08:23)
[2022-01-04] MEDS: AUGMENTIN 875 MG TAB PO SCH (08:23)
[2022-01-04] MEDS ORDERED: MEASLES,MUMPS,RUBELLA VACCINE INJ (MMR-II) (90707) SC.IMMUN ONE (09:00)
[2022-01-04 10:35] VITALS: BP 102/58
[2022-01-04] MEDS ORDERED: FEOS200T2 PO (12:23)
== END 2022-01-04 16:10 | disposition home or self-care (01) | DRG 541 ==
LOC: M LDI 21:01 → M OBS 01-02 18:01
PROVIDERS: ADMIT Advanced Practice Midwife; ATTEND Advanced Practice Midwife
PROC: 10E0XZZ Delivery of Products of Conception, External Approach (ICD-10-PCS; principal; 2022-01-02)
PROC: 10D17Z9 Manual Extraction of Products of Conception, Retained, Via Natural or Artificial Opening (ICD-10-PCS; 2022-01-02)
PROC: 3E0DXGC Introduction of Other Therapeutic Substance into Mouth and Pharynx, External Approach (ICD-10-PCS; 2022-01-02)
DX: O77.0 Labor and delivery complicated by meconium in amniotic fluid (principal); O72.0 Third-stage hemorrhage; O99.824 Streptococcus B carrier state complicating childbirth; Z37.0 Single live birth; Z3A.40 40 weeks gestation of pregnancy; Z91.010 Allergy to peanuts; Z88.8 Allergy status to other drugs, medicaments and biological substances; O69.82X0 Labor and delivery complicated by other cord entanglement, without compression, not applicable or unspecified

== ENCOUNTER 2022-01-08 09:20 | Emergency (ER) | payer OTHER ==
[~2022-01-08] VITALS: Ht 167.6 cm; Wt 79.1 kg
[~2022-01-08 09:20] MED LIST changes: +FEOS200T2 PO
[2022-01-08 10:41] LABS: BASO % 0.4 % (0.0-1.0); EOS # 0.2 10^3/uL (0.0-0.5); EOS % 1.5 % (0.0-3.0); HEMATOCRIT 23.6 % (36.0-47.0); HEMOGLOBIN 7.5 g/dl (12.0-15.5); LYMPH # 1.7 10^3/uL (1.5-5.0); LYMPH % 16.2 % (24.0-44.0); MEAN CORPUSCULAR HEMOGLOBIN 30.5 pg (27.0-33.0); MEAN CORPUSCULAR HGB CONC 31.8 g/dl (32.0-36.5); MEAN CORPUSCULAR VOLUME 95.9 fl (80.0-96.0); MONO # 0.4 10^3/uL (0.0-0.8); MONO % 3.8 % (2.0-8.0); NEUTROPHILS # 7.9 10^3/uL (1.5-8.5); NEUTROPHILS % 76.5 % (36.0-66.0); PLATELET COUNT, AUTOMATED 435 10^3/uL (150-450); RED BLOOD COUNT 2.46 10^6/uL (4.00-5.40); WHITE BLOOD COUNT 10.3 10^3/uL (4.0-10.0)
[2022-01-08 10:43] LABS: VENOUS BASE EXCESS -2.1 (-2.0-2.0); VENOUS HCO3 23.8 MEQ/L (23.0-27.0); VENOUS PARTIAL PRESSURE CO2 46.7 mmHg (38.0-50.0); VENOUS PARTIAL PRESSURE O2 46.8 mmHg (30.0-50.0); VENOUS PH 7.326 UNITS (7.330-7.430); VENOUS STANDARD HCO3 22.4 MEQ/L; VENOUS TOTAL CO2 25.3 MEQ/L (24.0-28.0)
[2022-01-08 11:28] LABS: RSV AMPLIFICATION NEGATIVE (NEGATIVE)
[2022-01-08 11:31] LABS: APPEARANCE, URINE MANUAL CLEAR (CLEAR); COLOR, URINE MANUAL YELLOW (YELLOW); SPECIFIC GRAVITY,URINE MANUAL 1.005 (1.002-1.035)
[2022-01-08 11:32] LABS: BILIRUBIN, URINE MANUAL NEGATIVE (NEGATIVE); BLOOD URINE MANUAL POSITIVE (NEGATIVE); GLUCOSE, URINE (UA) MANUAL NEGATIVE (NEGATIVE); KETONE, URINE MANUAL NEGATIVE (NEGATIVE); LEUKOCYTE ESTERASE, URINE MAN NEGATIVE (NEGATIVE); NITRITE, URINE MANUAL NEGATIVE (NEGATIVE); PROTEIN, URINE MANUAL NEGATIVE (NEGATIVE); UROBILINOGEN, URINE MANUAL NORMAL (NORMAL)
[2022-01-08 11:35] LABS: ALBUMIN 2.7 G/DL (3.2-5.2); ALT/SGPT 51 U/L (7.0-40); BILIRUBIN,DIRECT < 0.1 MG/DL (<0.4); BILIRUBIN,TOTAL 0.2 MG/DL (0.3-1.2); BLOOD UREA NITROGEN 9 MG/DL (9-23); CALCIUM LEVEL 8.3 MG/DL (8.5-10.1); CARBON DIOXIDE LEVEL 24 MMOL/L (20-31); CHLORIDE LEVEL 107 MMOL/L (98-107); CK-MB VALUE MASS 1.5 NG/ML (<3.6); CPK CREATINE PHOSPHOKINASE 99 U/L (34-145); CREATININE FOR GFR 0.68 MG/DL (0.55-1.30); GLOMERULAR FILTRATION RATE > 60.0 (>60); GLUCOSE, FASTING 72 MG/DL (60-100); MB/CK RELATIVE INDEX 1.51 (< OR =4); POTASSIUM SERUM 4.2 MMOL/L (3.5-5.1); SODIUM LEVEL 141 MMOL/L (136-145); THYROID STIMULATING HORMONE 3.868 uIU/ML (0.55-4.78)
[2022-01-08] MEDS ORDERED: ACETAMINOPHEN 500 MG TAB PO ONE (11:50)
[2022-01-08 11:53] LABS: RBC, URINE 15-20 /hpf (0-3); SQUAMOUS EPITHELIAL CELL URINE SMALL AMOUNT /hpf (SMALL AMT); TRANSITIONAL EPI CELLS, URINE SMALL AMOUNT /hpf
[2022-01-08] MEDS ORDERED: ISOVUE-370 76% 100ML VIAL As Ordered ONE (12:33)
[2022-01-08 14:11] VITALS: BP 168/77
== END 2022-01-08 14:13 | disposition home or self-care (01) ==
LOC: M ED 09:20
DX: D64.9 Anemia, unspecified (principal); R22.43 Localized swelling, mass and lump, lower limb, bilateral; R07.9 Chest pain, unspecified; K44.9 Diaphragmatic hernia without obstruction or gangrene; Z79.899 Other long term (current) drug therapy

== ENCOUNTER → 2022-01-17 | Outpatient (REF) | payer OTHER ==
[2022-01-17 17:06] LABS: HEMATOCRIT 32.5 % (36.0-47.0)
[2022-01-17 20:25] LABS: FERRITIN 7.7 NG/ML (7.3-270.7); PERCENT SATURATION 3.9 % (13.2-45.0)
== END ==
LOC: M LAB REF 16:24
PROVIDERS: ATTEND Physician Assistant Medical
DX: D64.9 Anemia, unspecified (principal)

== ENCOUNTER → 2024-01-28 | Outpatient (CLI) | payer OTHER ==
[~2024-01-28] MED LIST changes: -PSEU30TA86 PO; +PSEU30TA87 PO
[2024-01-28 14:45] LABS: FOLLICLE STIMULATING HORMONE 4.8 mIU/ML
[2024-01-28 14:46] LABS: LUTEINIZING HORMONE 5.6 mIU/ML
[2024-01-28 14:47] LABS: ESTRADIOL 97.4 PG/ML
[2024-01-28 14:48] LABS: PROGESTERONE 0.43 NG/ML
== END ==
LOC: M PLALAB 11:36
PROVIDERS: ATTEND Obstetrics & Gynecology
DX: N95.1 Menopausal and female climacteric states (principal)